=== PATIENT | female | born 1990 | race Caucasian/White ===

== ENCOUNTER → 2016-11-07 15:13 | Observation (INO) ==
[2016-11-07 14:21] LABS: Basophils % 0.3 %; Eosinophils # 0.1 K/mcL (0.0-0.6); Eosinophils % 0.7 %; Hematocrit 41.9 % (35.3-44.9); Hemoglobin 14.2 g/dL (11.5-15.4); Immature Granulocytes % 0.7 % (0-4); Lymphocytes # 1.9 K/mcL (0.6-4.6); Lymphocytes % 21.1 %; Mean Corpuscular HGB Conc 33.9 g/dL (31.6-35.5); Mean Corpuscular Hemoglobin 29.6 pg (28.0-33.3); Mean Corpuscular Volume 87.5 fL (83.0-100.0); Mean Platelet Volume 11.1 fL (9.4-12.4); Monocytes # 0.8 K/mcL (0.0-1.3); Monocytes % 9.4 %; Platelet Count 194 K/mcL (140-400); Red Blood Count 4.79 M/mcL (3.82-4.97); Red Cell Distribution Width 13.2 % (11.5-14.5); Segmented Neutrophils % 67.8 %
[2016-11-07 14:37] LABS: Creatinine,Urine 55 mg/dL; Protein/Creatinine Ratio,Urine 0.13 mg/mg (0-0.20)
[2016-11-07 14:40] LABS: Alanine Aminotransferase 13 Units/L (0-55); Aspartate Amino Transferase 21 Units/L (5-34); BUN/Creatinine Ratio 11 (6-26); Blood Urea Nitrogen 8 mg/dL (7-20); Lactate Dehydrogenase 238 Units/L (159-327); Uric Acid 6.8 mg/dL (2.6-6.0); eGFR For African Americans > 60 (> 60); eGFR For Non-African Americans > 60 (> 60)
--- NOTE | 2016-11-07 14:53 | OB/GYN Progress Note ---
Date of Encounter: 11/07/16 Time of Encounter: 14:51 - Assessment and Plan (1) 38 weeks gestation of Current Visit: Yes Status: Acute (2) NST (non-stress test) reactive Current Visit: Yes Status: Acute (3) Elevated blood pressure affecting in third trimester, antepartum Current Visit: Yes Status: Acute BP normal while pt in triage 120's/80's. No s/sx preeclampsia. Good FM. Discharge home with precautions. Subjective - Subjective Interval history: 26 year-old presenting at 38w4d for PIH evaluation. BP in office today was 140/92. Pt denies PENALOZA, vision changes, RUQ pain or other complaints. Good FM. She does report mild, irregular contractions. Antepartum ROS: movement normal, contractions, no loss of fluid, no vaginal bleeding Objective - Vital Signs Vital Signs: Intake and Output 11/06/16 11/07/16 11/07/16 23:59 07:59 15:59 Other: Weight 96.8 kg Patient Weight 11/07/16 23:59 Weight 96.8 kg - Exam FHR: category 1 FHR comments: 135 BPM reactive NST Auscultation: bilateral: normal Abdomen: Present: soft, gravid. Absent: tenderness Uterus: Absent: tenderness - Labs Labs: Abnormal lab results Uric Acid 6.8 mg/dL (2.6-6.0) H 11/07/16 14:00
== END | disposition home or self-care (01) ==
LOC: 1NENULAB
PROVIDERS: ADMIT Obstetrics & Gynecology; ATTEND Obstetrics & Gynecology

== ENCOUNTER 2016-11-09 10:35 | Inpatient (IN) ==
[2016-11-09] MEDS ORDERED: Famotidine 20 MG/2 ML VIAL IVP PRN (11:14)
[2016-11-09] MEDS ORDERED: Metoclopramide 10 MG/2 ML VIAL IVP PRN (11:14)
[2016-11-09] MEDS ORDERED: Ondansetron 4 MG/2 ML VIAL IVP PRN (11:14)
[2016-11-09] MEDS ORDERED: Naloxone 0.4 MG/ML INJ IVP PRN (11:14)
[2016-11-09] MEDS ORDERED: Ringers Solution, Lactated 1,000 ML IVC SCH (11:15)
[2016-11-09] MEDS ORDERED: miSOPROStol 25 MCG TABLET PO ONE (11:18)
[2016-11-09 11:46] LABS: Basophils % 0.3 %; Eosinophils # 0.1 K/mcL (0.0-0.6); Eosinophils % 0.7 %; Hematocrit 38.6 % (35.3-44.9); Hemoglobin 13.4 g/dL (11.5-15.4); Immature Granulocytes % 0.5 % (0-4); Lymphocytes # 1.5 K/mcL (0.6-4.6); Lymphocytes % 20.4 %; Mean Corpuscular HGB Conc 34.7 g/dL (31.6-35.5); Mean Corpuscular Hemoglobin 30.2 pg (28.0-33.3); Mean Corpuscular Volume 86.9 fL (83.0-100.0); Mean Platelet Volume 11.3 fL (9.4-12.4); Monocytes # 0.6 K/mcL (0.0-1.3); Monocytes % 8.1 %; Neutrophils # 5.2 K/mcL (1.6-8.9); Platelet Count 171 K/mcL (140-400); Red Blood Count 4.44 M/mcL (3.82-4.97); Red Cell Distribution Width 13.3 % (11.5-14.5)
[2016-11-09 12:04] LABS: Alanine Aminotransferase 16 Units/L (0-55); Aspartate Amino Transferase 20 Units/L (5-34); BUN/Creatinine Ratio 11 (6-26); Blood Urea Nitrogen 7 mg/dL (7-20); Lactate Dehydrogenase 178 Units/L (159-327); eGFR For African Americans > 60 (> 60); eGFR For Non-African Americans > 60 (> 60)
--- NOTE | 2016-11-09 14:48 | OB/GYN History & Physical ---
Date of Encounter: 11/09/16 Time of Encounter: 14:40 Assessment and Plan (1) 38 weeks gestation of Current visit: No Status: Acute (2) Elevated blood pressure affecting in third trimester, antepartum Current visit: No Status: Acute Induction of labor with cytotec PIH labs negative except for elevated uric acid Epidural and nubain as desired Anticipate History of Present Illness Chief complaint: Induction of labor HPI: Ms. Hauser is a 26 year old female 38+6 sent over from the office with repeated elevated high blood pressures greater than 140/90 last two visits for induction of labor with cytotec. Reports good movement, denies vaginal bleeding or leaking of fluid. No other complaints. Labs: O+, Rubella immune, GBS negative, all other serologies negative Past Med Surg Social Fam HX - Past Medical History Medical history: no medical history Psychiatric history: no psych history - Past Surgical History Surgical History: no surgical history - Social History Smoking Status: Former smoker Smokeless Tobacco Status: No Alcohol use: none Drug use: none - Family History Mother Adopted: [place]: keith tan Age: 52 Family Member Ethnicity: Non- Living Status: Still Living Hx Family Cardiac Disorders: Yes (htn) Hx Family Respiratory Disorders: No Hx Family Cancer: No Hx Family GI Disorders: No Hx Family Genitourinary Disorders: No Hx Family Endocrine Disorder: No Hx Family Musculoskeletal Disorders: No Hx Family Neuromuscular Disorders: No Hx Family Neurologic Disorders: No Hx Family HEENT Disorders: No Hx Family Autoimmune Disorders: No Hx Family Reproductive Disorders: No Hx Family Psychosocial Disorders: No Hx Family Medical Disorders: No Obstetrical History - Pregnancies : 2 Para: 1 Term: 1 : 0 Ab's: 0 Livin Medications and Allergies Pepcid 20 mg PO DAILY 11/07/16 [History] Formula Tablet 1 tab PO DAILY 11/07/16 [History] Allergies No Known Allergies Allergy (Verified 11/07/16 14:08) Exam - Constitutional Constitutional: well developed, well nourished, no acute distress, average body habitus - Neck Neck exam: full ROM - Lungs Respiratory exam: CTAB - Cardiovascular Cardiovascular exam: RRR, +S1, +S2 - Abdomen Abdomen: Present: bowel sounds normal, gravid, non tender - Uterus Uterus exam: Present: normal size, normal contour Results Result Diagrams: 11/09/16 11:25 07/05/17 11:25 Abnormal lab results Uric Acid 7.0 mg/dL (2.6-6.0) H 11/09/16 11:25 All other labs normal. - VTE Reasons for not Prescribing Prophylaxis: Treatment not Indicated - Low risk for VTE
--- NOTE | 2016-11-09 17:20 | OB Labor Progress Note ---
Date of Encounter: 11/09/16 Time of Encounter: 17:15 Labor Progress Note - Subjective Subjective: pt states cramping is a little stronger - Vital Signs Vital Signs: 127/80 - Cervix Cervix: 4/80/-2 - Heart Tones Heart Tones: 125/moderate/+accles/early decels - [place]: 2-4 - Interventions Interventions: AROM for clear fluid - Plan Plan: Continue current management plan Dscussed with Dr. Bradshaw anticipate
[2016-11-09] MEDS ORDERED: Oxytocin 20 units/ LR 1000 mL 20 UNIT/1,000 ML BAG IVC SCH (18:00)
[2016-11-09] MEDS ORDERED: *HR* Ropivacaine/PF 0.2% 10 ML AMPUL EP ONE (20:12)
[2016-11-09] MEDS ORDERED: EPHEDrine 50 MG/ML VIAL IVP PRN (20:12)
[2016-11-09] MEDS ORDERED: Ringers Solution, Lactated 500 ML IVC ONE (20:12)
[2016-11-09] MEDS ORDERED: *HR* FentaNYL (PF) 100 MCG/2 ML VIAL EP ONE (20:12)
[2016-11-09] MEDS ORDERED: Epidural Premix (fent/bupiv) 110 ML EP SCH (20:15)
[2016-11-09] MEDS ORDERED: Lidocaine 1% 20 ML MDV ONE (20:16)
[2016-11-09] MEDS ORDERED: *HR* FentaNYL (PF) 100 MCG/2 ML VIAL ONE (20:18)
[2016-11-09] MEDS ORDERED: Epidural Premix (fent/bupiv) 110 ML EP ONE (20:18)
--- NOTE | 2016-11-09 20:59 | Anesthesia Evaluation PreOp ---
Date of Encounter: 11/09/16 Time of Encounter: 20:20 - Past History Planned Operation: Labor Epidural Cardiac History: HTN (PIH) Pulmonary History: Denies Any Significant HX CREEL SELECTOR History: Denies Any Significant HX Other Medical History: Denies Any Significant HX, Other (Scoliosis) Anesthesia History: No Prior Anesthetic Complications : Yes Alcohol Use: none Drug use: none Medications and Allergies Pepcid 20 mg PO DAILY 11/07/16 [History] Formula Tablet 1 tab PO DAILY 11/07/16 [History] Allergies No Known Allergies Allergy (Verified 11/07/16 14:08) - Meds/Allergy Pre-op Review Medications Reviewed: Yes Allergies Reviewed: Yes Beta Blockers on Current Med List: No Anesthesia Results - Labs 11/09/16 11:25 11/09/16 11:25 Anesthesia Exam Height: 1.7m Weight: 96.3m NPO (# of Hours): >4 Pain Scale: 10 Pain Scale Used: Numeric (1 - 10) - HEENT Pupil (Motor): Pupils equal Mallampati: II Teeth: Normal Oral Opening: Greater than 3 - CREEL SELECTOR LOC: Oriented CREEL SELECTOR Motor: Normal RUE, Normal LUE, Normal RLE, Normal LLE, Normal Face CREEL SELECTOR Sensory: Normal: RUE, LUE, RLE, LLE, Face - Cardiac Rhythm: Regular Murmur: None JVD: No Carotid Bruit: No - Pulmonary Breath Sounds: bilateral Clear Respiratory Effort: Symmetrical Anesthesia Assess/Plan ASA Score: 2 Modified [place] Scale for Level of Consciousness: Cooperative, oriented, and tranquil Anesthetic Plan: Regional Monitoring Plan: Standard Monitors Recovery Plan: Other
--- NOTE | 2016-11-09 21:01 | Anesthesia Procedures ---
Date of Encounter: 11/09/16 Time of Encounter: 20:20 Procedures: Anesthesia - Epidural/Spinal Patient ID/Chart reviewed: Yes Patient examined: Yes OB Eval: Gestational age: 38.6 OB Eval: : 2 OB Eval: Hx Para: 1 OB Eval: Contractions: Non-stressed pattern Consent Obtained: Yes Supplemental Oxygen: None/Room Air Site Prep: Aseptic Technique, Sterile prep and drape, 0.5% Chlorhexidine/Alcohol Patient position: upright Local Anesthetic: Lidocaine 1% Amount of Local Anesthetic used: 5 (2.5mL at L3-4 and L4-5) Touhy Needle Gauge: 18 Touhy Needle Depth (cm): 8 (L4-5) Catheter Depth at Skin (cm): 15 Test Dose (1.5% Lido + Epi): Volume given (mls): 5 (L4-5) Test Dose Result: Negative Loading Dose: Fentanyl (mcg): 100 Loading Dose: Other: Ropivacaine 0.5% 10mL Loading Dose Administered: Thru Catheter Infusion Med: 0.125% Bupivacaine w/ 2 mcg/ml Fentanyl Infusion Rate (mls/hr): 16 (Bolus 4mL q15min; Max 3/hr) Catheter Secured in Place: Tegaderm, Tape Interspace Used: L4-L5 Loss of Resistance (NA): Yes Blood: Yes (at L3-4 attempt) CSF: No Paresthesia: No Procedure: Attempt at L3-4 interspace x1 pass. NA at 7cm. Catheter placed without difficulty. Positive blood noted in catheter. 2mL test dose given and HR increased from 64 to >100bpm. Catheter D/C'd and L4-5 interspace used. NA at 8cm and catheter placed without difficulty x1 attempt. Negative test dose. Bolus given and patient reports increased comfort. Patient tolerated procedure well. Vitals + FHT's: VSS and FHR stable throughout with exception of positive test dose at L3-4 initial attempt. See nursing documentation.
--- NOTE | 2016-11-09 22:57 | OB/GYN Procedure Note ---
Delivery - Delivery Date: 11/09/16 Provider: Jaylan Bradshaw Intrapartum events: none Delivery induction: AROM Delivery monitor: external FHT, external uterine Anesthesia: epidural Estimated Blood Loss: 100 - Infant (s) Infant A Delivery Date: 11/09/16 Infant Delivery Time: 22:43 Presentation: vertex Position: JASMINE Gender: Female Viability: Viable Pounds: 7 Ounces: 13 at 1 minute: 8 at 5 mins: 9 Shoulder Dystocia: not encountered Specimens collected: cord blood Placenta: spontaneous Cord: 3 umbilical vessels, delivered through nuchal - Repair Episiotomy: none Laceration Description: None - Complications Delivery complications: none - Disposition Mom disposition: stable in LDR disposition: stable in LDR - Comments Comments: Pt s/p without complications. Infant was delivered through tight nuchal cord and was immediately vigourous. No laceration. Spontneous delivery of normal placenta.
[2016-11-10] MEDS ORDERED: Ibuprofen 600 MG TABLET PO PRN (01:45)
[2016-11-10] MEDS ORDERED: Oxytocin 20 units/ LR 1000 mL 20 UNIT/1,000 ML BAG IVC SCH (01:45)
[2016-11-10] MEDS ORDERED: Rho Immune Globulin 1,500 UNIT SYRINGE IM PRN (01:45)
[2016-11-10] MEDS ORDERED: Measles/Mumps/Rubella Vacc 0.5 ML VIAL SQ PRN (01:45)
[2016-11-10 05:59] LABS: Basophils % 0.3 %; Eosinophils % 0.3 %; Hemoglobin 12.9 g/dL (11.5-15.4); Immature Granulocytes % 0.6 % (0-4); Lymphocytes # 1.7 K/mcL (0.6-4.6); Lymphocytes % 16.1 %; Mean Corpuscular HGB Conc 33.9 g/dL (31.6-35.5); Mean Corpuscular Hemoglobin 29.5 pg (28.0-33.3); Mean Platelet Volume 11.2 fL (9.4-12.4); Monocytes # 0.8 K/mcL (0.0-1.3); Neutrophils # 7.8 K/mcL (1.6-8.9); Platelet Count 167 K/mcL (140-400); Red Blood Count 4.37 M/mcL (3.82-4.97); Red Cell Distribution Width 13.2 % (11.5-14.5); Segmented Neutrophils % 74.7 %
[2016-11-10] MEDS: Acetaminophen 325 MG TABLET PO PRN ×2 (06:19→15:35)
--- NOTE | 2016-11-10 09:08 | OB/GYN Progress Note ---
Date of Encounter: 11/10/16 Time of Encounter: 09:06 - Assessment and Plan (1) 38 weeks gestation of Current Visit: No Status: Acute Stable day 1. Pain well managed, continue current management plan. Anticipate DC tomorrow. (2) Elevated blood pressure affecting in third trimester, antepartum Current Visit: No Status: Acute Induction of labor with cytotec PIH labs negative except for elevated uric acid Epidural and nubain as desired Anticipate Subjective - Subjective Patient reports: appetite normal, voiding normally, pain well controlled, ambulating normally [place]: doing well Objective - Latest Vital Signs Latest vital signs: Vital Signs Temp Pulse Resp BP Pulse Ox 11/10/16 08:45 98.2 F 98 16 130/89 97 11/10/16 03:00 98.4 F 75 18 118/67 97 11/10/16 02:00 98.3 F 69 18 133/82 97 11/10/16 01:00 98.2 F 69 14 116/75 97 Intake and Output 11/09/16 11/10/16 11/10/16 23:59 07:59 15:59 Intake Total 500 / 500 Output Total 200 / 200 975 / 975 650 / 650 Balance -200 / -200 -975 / -975 -150 / -150 Intake: Oral 500 / 500 Output: Urine 975 / 975 650 / 650 Estimated Blood Loss 100 / 100 Catheter 100 / 100 Other: Weight 93.6 kg Patient Weight 11/10/16 23:59 Weight 93.6 kg - Exam Lungs: bilateral: normal Chest: Normal S1, Normal S2 Extremities: Present: normal Abdomen: Present: normal appearance, soft, gravid Uterus: Present: normal, firm Uterus Position: At Umbilicus, Midline - Labs Labs: Laboratory Results - last 24 hr 11/09/16 11/09/16 11/10/16 11:25 11:25 05:45 WBC 7.4 10.4 RBC 4.44 4.37 Hgb 13.4 12.9 Hct 38.6 38.0 MCV 86.9 87.0 MCH 30.2 29.5 MCHC 34.7 33.9 RDW 13.3 13.2 Plt Count 171 167 MPV 11.3 11.2 Immature Gran % 0.5 0.6 Seg Neutrophils % 70.0 74.7 Lymphocytes % 20.4 16.1 Monocytes % 8.1 8.0 Eosinophils % 0.7 0.3 Basophils % 0.3 0.3 Neutrophils # 5.2 7.8 Lymphocytes # 1.5 1.7 Monocytes # 0.6 0.8 Eosinophils # 0.1 0.0 Basophils # 0.0 0.0 BUN 7 Creatinine 0.62 Est GFR ( Amer) > 60 Est GFR (Non-Af Amer) > 60 BUN/Creatinine Ratio 11 Uric Acid 7.0 H AST 20 ALT 16 Lactate Dehydrogenase 178
[2016-11-10] MEDS: Prenatal Vit/FA 1 EACH TABLET PO SCH (09:31)
[2016-11-10] MEDS: Famotidine 20 MG TABLET PO SCH (09:31)
[2016-11-10] MEDS: Ibuprofen 600 MG TABLET PO PRN ×2 (12:58→20:38)
[2016-11-11] MEDS: Prenatal Vit/FA 1 EACH TABLET PO SCH (08:23)
[2016-11-11] MEDS: Famotidine 20 MG TABLET PO SCH (08:23)
[2016-11-11 08:35] VITALS: BP 117/77
--- NOTE | 2016-11-11 08:42 | Discharge Summary ---
Date of Encounter: 11/11/16 Time of Encounter: 08:40 - Discharge Diagnosis (1) 38 weeks gestation of Priority: Secondary Status: Acute (2) Elevated blood pressure affecting in third trimester, antepartum Priority: Primary Status: Acute (3) Vaginal delivery Priority: Primary Status: Acute Comments: Meeting post milestones, , pain well managed, desires discharge - Discharge Medications Prescriptions: Ibuprofen [Motrin] 600 mg PO Q6HR PRN #60 tablet PRN Reason: Pain Docusate [Colace] 100 mg PO BID #60 capsule Home Medications: Pepcid 20 mg PO DAILY 11/07/16 [History] Formula Tablet 1 tab PO DAILY 11/07/16 [History] Acetaminophen [Tylenol] 650 mg PO Q6HR PRN #0 tablet 11/11/16 [Rx] Docusate [Colace] 100 mg PO BID #60 capsule 11/11/16 [Rx] Ibuprofen [Motrin] 600 mg PO Q6HR PRN #60 tablet 11/11/16 [Rx] Allergies/Adverse Reactions: Allergies No Known Allergies Allergy (Verified 11/07/16 14:08) Data Procedures and tests throughout hospitalization: Laboratory Tests 11/09/16 11/09/16 11/10/16 11:25 11:25 05:45 WBC 7.4 10.4 RBC 4.44 4.37 Hgb 13.4 12.9 Hct 38.6 38.0 MCV 86.9 87.0 MCH 30.2 29.5 MCHC 34.7 33.9 RDW 13.3 13.2 Plt Count 171 167 MPV 11.3 11.2 Immature Gran % 0.5 0.6 Seg Neutrophils % 70.0 74.7 Lymphocytes % 20.4 16.1 Monocytes % 8.1 8.0 Eosinophils % 0.7 0.3 Basophils % 0.3 0.3 Neutrophils # 5.2 7.8 Lymphocytes # 1.5 1.7 Monocytes # 0.6 0.8 Eosinophils # 0.1 0.0 Basophils # 0.0 0.0 BUN 7 Creatinine 0.62 Est GFR ( Amer) > 60 Est GFR (Non-Af Amer) > 60 BUN/Creatinine Ratio 11 Uric Acid 7.0 H AST 20 ALT 16 Lactate Dehydrogenase 178 Date of admission: 11/09/16 10:35 Primary care physician: PCP NO Consults: 11/10/16 01:45 Consult to Associate Web Developer [CONS] Routine Comment: Vaginal delivery, consult needed Discharging clinician: Ariana Werner Anticipated date of discharge: 11/11/16 - Patient Status Disposition: Home, Self-Care Condition: Good Functional capacity at discharge: independent ambulation Overall status at discharge: patient is back to baseline - Discharge Instructions Follow Up With: NO,PCP [Primary Care Provider] - Jaylan Bradshaw MD [Partnered Physician] - - Diet and Activity Activity: resume usual activities as tolerated Diet: regular diet Hospital Course Reason for admission: induction of labor, IUP at term Delivery: Episiotomy: none Laceration: none Other procedures: none complications: none Discharge diagnosis: IUP at term delivered baby: female Hospital course: Delivery - Delivery Date: 11/09/16 Provider: Jaylan Bradshaw Intrapartum events: none Delivery induction: AROM Delivery monitor: external FHT, external uterine Anesthesia: epidural Estimated Blood Loss: 100 - Infant (s) Infant A Delivery Date: 11/09/16 Infant Delivery Time: 22:43 Presentation: vertex Position: JASMINE Gender: Female Viability: Viable Pounds: 7 Ounces: 13 at 1 minute: 8 at 5 mins: 9 Shoulder Dystocia: not encountered Specimens collected: cord blood Placenta: spontaneous Cord: 3 umbilical vessels, delivered through nuchal - Repair Episiotomy: none Laceration Description: None - Complications Delivery complications: none - Disposition Mom disposition: stable in PP. Appropriate for discharge Time Attestation: Total time spent providing and/or coordinating discharge services: Time Spent: Less than 30 minutes Exam - Constitutional Vitals: Temp Pulse Resp BP Pulse Ox 98 F 102 16 117/77 97 11/11/16 08:33 11/11/16 08:33 11/11/16 08:33 11/11/16 08:33 11/11/16 08:33 General appearance IM: A&O X 3, pleasant, no acute distress - Respiratory Respiratory exam: Present: CTAB - Cardiovascular Cardiovascular exam IM: Present: RRR, +S1, +S2 - GI/Abdominal GI/Abdominal exam IM: soft - Uterus Position: At Umbilicus, Midline - Extremities Exam Extremities exam IM: Present: normal capillary refill, normal inspection - Neurological Exam Neurological exam: oriented X3 - Psychiatric Additional comments: reports good mood
== END 2016-11-11 11:15 | disposition home or self-care (01) | DRG 775 ==
LOC: 1NENULAB 10:35 → 1NENUOBS 11-10 01:15
PROVIDERS: ADMIT Obstetrics & Gynecology; ATTEND Obstetrics & Gynecology